=== PATIENT | female | born 1990 | race Caucasian/White ===

== ENCOUNTER → 2017-09-25 | Outpatient (CLI) | payer BC | LOC: LAB 10:02 | DX: J02.9 Acute pharyngitis, unspecified (principal) ==

== ENCOUNTER → 2020-03-24 | Outpatient (CLI) | payer BC | LOC: RAD 08:04 | DX: M25.561 Pain in right knee (principal) ==

== ENCOUNTER 2020-07-16 16:55 | Emergency (ER) | payer BC ==
[~2020-07-16] VITALS: Wt 100.9 kg
[2020-07-16] MEDS ORDERED: AUROVELA FE 1-1 EACH PO (17:11)
[2020-07-16 19:38] VITALS: BP 126/84
== END 2020-07-16 19:38 | disposition home or self-care (01) ==
LOC: ED 16:55
DX: R06.02 Shortness of breath (principal); R05 Cough; Z20.828 Contact with and (suspected) exposure to other viral communicable diseases; Z32.02 Encounter for pregnancy test, result negative; Z88.1 Allergy status to other antibiotic agents; Z88.8 Allergy status to other drugs, medicaments and biological substances
CPT/HCPCS: Q9967

== ENCOUNTER → 2020-07-16 | Outpatient (CLI) | payer BC ==
[~2020-07-16] MED LIST: AUROVELA FE 1-1 EACH PO
[2020-07-16 15:58] LABS: BASO # 0.1 (0.02-0.10); EOS # 0.2 (0.04-0.40); EOS % 1.6 % (1.0-5.0); HEMATOCRIT 44.6 % (37.0-47.0); HEMOGLOBIN 15.6 g/dL (12.5-16.0); LYMPH# 2.5 (1.50-4.00); MEAN CELL VOLUME 84 fl (78-100); MEAN CORPUSCULAR HEMOGLOBIN 29 pg (27-31); MEAN CORPUSCULAR HGB CONC 35 g/dL (33-37); MEAN PLATELET VOLUME 9.8 fl (7.4-10.4); NEU # 6.9 (1.40-6.50); PLATELET COUNT 360 K/mm3 (130-400); RED BLOOD COUNT 5.31 M/mm3 (4.10-5.30); RED CELL DISTRIBUTION WIDTH 12.5 % (11.5-14.5); WHITE BLOOD COUNT 10.7 K/mm3 (4.8-10.8)
[2020-07-16 16:13] LABS: ALBUMIN 4.5 g/dL (3.5-5.0); POTASSIUM 4.2 mmol/L (3.5-5.1); SODIUM 140 mmol/L (136-145)
[2020-07-16 16:14] LABS: CALCIUM 10.1 mg/dL (8.3-10.5)
[2020-07-16 16:15] LABS: GLUCOSE 98 mg/dL (65-105)
[2020-07-16 16:16] LABS: TOTAL PROTEIN 8.3 g/dL (6.4-8.3)
[2020-07-16 16:17] LABS: CARBON DIOXIDE 22 mmol/L (22-29); TOTAL BILIRUBIN 0.3 mg/dL (0.2-1.2)
[2020-07-16 16:21] LABS: AST-SGOT 29 U/L (5-34)
[2020-07-16 16:22] LABS: ALT/SGPT 53 U/L (0-55)
[2020-07-16 16:30] LABS: D-DIMER 0.55 mg/L FEU (0.15-0.50)
[2020-07-16 16:31] LABS: TROPONIN-I < 0.03 ng/mL (<0.030)
== END ==
LOC: LAB 07:29
PROVIDERS: Nurse Practitioner
DX: R05 Cough (principal); R06.02 Shortness of breath; R50.9 Fever, unspecified; R51.9 Headache, unspecified; Z20.828 Contact with and (suspected) exposure to other viral communicable diseases

== ENCOUNTER → 2020-07-20 | Outpatient (CLI) | payer BC ==
[2020-07-16 19:38] VITALS: BP 126/84
== END ==
LOC: RAD 10:29
DX: M79.604 Pain in right leg (principal); R79.1 Abnormal coagulation profile

== ENCOUNTER → 2021-03-26 | Outpatient (REF) | LOC: LAB 11:52 | DX: Z00.00 Encounter for general adult medical examination without abnormal findings (principal) ==

== ENCOUNTER 2021-09-12 07:58 | Emergency (ER) | payer BC ==
[~2021-09-12] VITALS: Ht 180.3 cm; Wt 105.4 kg
[2021-09-12] MEDS ORDERED: PROAIR HFA0.09 MG/AC IH (08:09)
[2021-09-12] MEDS ORDERED: MELOXICAM7.5 MG PO (08:09)
[2021-09-12] MEDS ORDERED: ZOFRAN ODT4 MG PO (11:13)
[2021-09-12 11:25] VITALS: BP 126/87
== END 2021-09-12 11:25 | disposition home or self-care (01) ==
LOC: ED 07:58
DX: S06.0X0A Concussion without loss of consciousness, initial encounter (principal); M54.2 Cervicalgia; W10.9XXA Fall (on) (from) unspecified stairs and steps, initial encounter; Y92.009 Unspecified place in unspecified non-institutional (private) residence as the place of occurrence of the external cause
CPT/HCPCS: J1885; J2360; L0172

== ENCOUNTER 2021-09-15 11:31 | Emergency (ER) | payer BC ==
[~2021-09-15] VITALS: Ht 180.3 cm; Wt 105.4 kg
[~2021-09-15 11:31] MED LIST changes: +MELOXICAM7.5 MG PO; +PROAIR HFA0.09 MG/AC IH; +ZOFRAN ODT4 MG PO
[2021-09-15 12:14] LABS: BASO # 0.07 K/mm3 (0.02-0.10); EOS % 2.6 % (1.0-5.0); HEMATOCRIT 45.4 % (37.0-47.0); HEMOGLOBIN 16.1 g/dL (12.5-16.0); LYMPH# 2.71 K/mm3 (1.50-4.00); MEAN CELL VOLUME 84 fl (78-100); MEAN CORPUSCULAR HEMOGLOBIN 30 pg (27-31); MEAN CORPUSCULAR HGB CONC 36 g/dL (33-37); MEAN PLATELET VOLUME 9.4 fl (7.4-10.4); MONO # 0.88 K/mm3 (0.20-0.80); NEU # 7.75 K/mm3 (1.40-6.50); PLATELET COUNT 385 K/mm3 (130-400); RED BLOOD COUNT 5.41 M/mm3 (4.10-5.30); RED CELL DISTRIBUTION WIDTH 11.9 % (11.5-14.5); WHITE BLOOD COUNT 11.7 K/mm3 (4.8-10.8)
[2021-09-15 12:16] LABS: ALBUMIN 4.5 g/dL (3.5-5.0)
[2021-09-15 12:17] LABS: SODIUM 141 mmol/L (136-145)
[2021-09-15 12:18] LABS: CALCIUM 9.7 mg/dL (8.3-10.5)
[2021-09-15 12:19] LABS: GLUCOSE 90 mg/dL (65-105)
[2021-09-15 12:20] LABS: CARBON DIOXIDE 22 mmol/L (22-29)
[2021-09-15 12:21] LABS: TOTAL BILIRUBIN 0.7 mg/dL (0.2-1.2)
[2021-09-15 12:22] LABS: D-DIMER 0.49 mg/L FEU (0.15-0.50)
[2021-09-15 12:24] LABS: AST-SGOT 43 U/L (5-34)
[2021-09-15 12:25] LABS: ALT/SGPT 62 U/L (0-55)
[2021-09-15 12:32] LABS: TROPONIN-I < 0.030 ng/mL (<0.030)
[2021-09-15 12:37] LABS: URINE APPEARANCE CLOUDY; URINE BILIRUBIN NEGATIVE (NEGATIVE); URINE BLOOD TRACE (NEGATIVE); URINE COLOR YELLOW; URINE GLUCOSE NEGATIVE (NEGATIVE); URINE KETONE NEGATIVE (NEGATIVE); URINE LEUKOCYTE ESTERASE 2+ (NEGATIVE); URINE NITRATE NEGATIVE (NEGATIVE); URINE PROTEIN(semi-quant) TRACE (NEGATIVE); URINE UROBILINOGEN NORMAL (NORMAL)
[2021-09-15 12:38] LABS: URINE MUCUS PRESENT (NOT PRESENT)
[2021-09-15] MEDS ORDERED: POLYTRIM 1000010 ML OP (13:12)
[2021-09-15] MEDS ORDERED: MACROBID 100 M100 MG PO (13:12)
[2021-09-15 13:21] VITALS: BP 129/91
== END 2021-09-15 13:39 | disposition home or self-care (01) ==
LOC: ED 11:31
PROVIDERS: Physician Assistant
DX: S06.0X9A Concussion with loss of consciousness of unspecified duration, initial encounter (principal); D72.829 Elevated white blood cell count, unspecified; H10.9 Unspecified conjunctivitis; H92.01 Otalgia, right ear; Z20.822 Contact with and (suspected) exposure to COVID-19; W10.9XXA Fall (on) (from) unspecified stairs and steps, initial encounter; W22.8XXA Striking against or struck by other objects, initial encounter
CPT/HCPCS: J0696

== ENCOUNTER → 2021-10-21 | Outpatient (CLI) | payer BC ==
[~2021-10-21] MED LIST changes: +MACROBID 100 M100 MG PO; +POLYTRIM 1000010 ML OP
== END ==
LOC: RAD 08:30
DX: F07.81 Postconcussional syndrome (principal)

== ENCOUNTER → 2022-01-06 | Outpatient (CLI) | payer BC ==
[~2022-01-06] MED LIST changes: +BETAMETHASONE D0.05% TOP; +DESVENLAFAXINE25 MG PO; +DESVENLAFAXINE50 M3 PO; +KLONOPIN 1MG1 MG PO; +NEURONTIN300 MG/CAP PO; +TRIAMCINOLONE AC0.13 TP; +TYLENOL EXTRA500 M2 PO
== END ==
LOC: RAD 16:57
DX: M54.2 Cervicalgia (principal); M54.81 Occipital neuralgia
CPT/HCPCS: A9585

== ENCOUNTER 2022-01-20 17:25 | Emergency (ER) | payer BC ==
[~2022-01-20 17:25] MED LIST changes: -BETAMETHASONE D0.05% TOP; -DESVENLAFAXINE25 MG PO; -DESVENLAFAXINE50 M3 PO; -KLONOPIN 1MG1 MG PO; -NEURONTIN300 MG/CAP PO; -TRIAMCINOLONE AC0.13 TP; -TYLENOL EXTRA500 M2 PO
[2022-01-20 19:55] LABS: BASO # 0.07 K/mm3 (0.02-0.10); EOS # 0.36 K/mm3 (0.04-0.40); HEMATOCRIT 42.7 % (37.0-47.0); HEMOGLOBIN 14.8 g/dL (12.5-16.0); LYMPH# 2.64 K/mm3 (1.50-4.00); MEAN CELL VOLUME 85 fl (78-100); MEAN CORPUSCULAR HEMOGLOBIN 30 pg (27-31); MEAN CORPUSCULAR HGB CONC 35 g/dL (33-37); MONO # 0.75 K/mm3 (0.20-0.80); NEU # 8.06 K/mm3 (1.40-6.50); PLATELET COUNT 407 K/mm3 (130-400); RED BLOOD COUNT 5.02 M/mm3 (4.10-5.30); RED CELL DISTRIBUTION WIDTH 12.1 % (11.5-14.5); WHITE BLOOD COUNT 11.9 K/mm3 (4.8-10.8)
[2022-01-20 19:59] LABS: ALBUMIN 4.6 g/dL (3.5-5.0)
[2022-01-20 20:00] LABS: POTASSIUM 3.9 mmol/L (3.5-5.1)
[2022-01-20 20:02] LABS: TOTAL PROTEIN 7.3 g/dL (6.4-8.3)
[2022-01-20 20:04] LABS: TOTAL BILIRUBIN 0.6 mg/dL (0.2-1.2)
[2022-01-20 20:44] LABS: URINE APPEARANCE CLEAR; URINE BILIRUBIN NEGATIVE (NEGATIVE); URINE BLOOD NEGATIVE (NEGATIVE); URINE COLOR YELLOW; URINE GLUCOSE NEGATIVE (NEGATIVE); URINE KETONE NEGATIVE (NEGATIVE); URINE LEUKOCYTE ESTERASE NEGATIVE (NEGATIVE); URINE NITRATE NEGATIVE (NEGATIVE); URINE PROTEIN(semi-quant) TRACE (NEGATIVE); URINE UROBILINOGEN NORMAL (NORMAL)
[2022-01-20 22:00] VITALS: BP 108/69
[2022-01-21] MEDS ORDERED: NEURONTIN300 MG/CAP PO (01:19)
[2022-01-21] MEDS ORDERED: KLONOPIN 1MG1 MG PO (01:20)
[2022-01-21] MEDS ORDERED: DESVENLAFAXINE25 MG PO (01:20)
[2022-01-21] MEDS ORDERED: DESVENLAFAXINE50 M3 PO (01:20)
[2022-01-21] MEDS ORDERED: BETAMETHASONE D0.05% TOP (01:21)
[2022-01-21] MEDS ORDERED: TYLENOL EXTRA500 M2 PO (01:21)
[2022-01-21] MEDS ORDERED: TRIAMCINOLONE AC0.13 TP (01:22)
== END 2022-01-20 22:00 | disposition home or self-care (01) ==
LOC: ED 17:25
PROVIDERS: Family Medicine
DX: F07.81 Postconcussional syndrome (principal); E66.9 Obesity, unspecified; Z28.311 Partially vaccinated for COVID-19
CPT/HCPCS: Q9967

== ENCOUNTER 2022-01-27 22:08 | Emergency (ER) | payer BC ==
[~2022-01-27 22:08] MED LIST changes: +BETAMETHASONE D0.05% TOP; +DESVENLAFAXINE25 MG PO; +DESVENLAFAXINE50 M3 PO; +KLONOPIN 1MG1 MG PO; +NEURONTIN300 MG/CAP PO; +TRIAMCINOLONE AC0.13 TP; +TYLENOL EXTRA500 M2 PO
[2022-01-27 23:02] LABS: BASO # 0.07 K/mm3 (0.02-0.10); EOS # 0.42 K/mm3 (0.04-0.40); EOS % 4.5 % (1.0-5.0); HEMOGLOBIN 13.5 g/dL (12.5-16.0); LYMPH# 2.76 K/mm3 (1.50-4.00); MEAN CELL VOLUME 84 fl (78-100); MEAN CORPUSCULAR HEMOGLOBIN 30 pg (27-31); MEAN CORPUSCULAR HGB CONC 36 g/dL (33-37); MEAN PLATELET VOLUME 9.8 fl (7.4-10.4); MONO # 0.61 K/mm3 (0.20-0.80); NEU # 5.45 K/mm3 (1.40-6.50); PLATELET COUNT 309 K/mm3 (130-400); RED BLOOD COUNT 4.55 M/mm3 (4.10-5.30); RED CELL DISTRIBUTION WIDTH 12.2 % (11.5-14.5); WHITE BLOOD COUNT 9.3 K/mm3 (4.8-10.8)
[2022-01-27 23:05] LABS: POTASSIUM 3.3 mmol/L (3.5-5.1)
[2022-01-27 23:07] LABS: CALCIUM 9.1 mg/dL (8.3-10.5)
[2022-01-27 23:08] LABS: TOTAL PROTEIN 6.2 g/dL (6.4-8.3)
[2022-01-27 23:10] LABS: TOTAL BILIRUBIN 0.6 mg/dL (0.2-1.2)
[2022-01-27 23:43] LABS: PH-URINE 6.5 (5.0 - 8.0); URINE APPEARANCE HAZY; URINE BILIRUBIN NEGATIVE (NEGATIVE); URINE BLOOD NEGATIVE (NEGATIVE); URINE COLOR LT YELLOW; URINE GLUCOSE NEGATIVE (NEGATIVE); URINE KETONE NEGATIVE (NEGATIVE); URINE LEUKOCYTE ESTERASE NEGATIVE (NEGATIVE); URINE NITRATE NEGATIVE (NEGATIVE); URINE PROTEIN(semi-quant) NEGATIVE (NEGATIVE); URINE UROBILINOGEN NORMAL (NORMAL); URINE WBC 0-1 /hpf (0-3)
[2022-01-28 01:42] VITALS: BP 123/81
== END 2022-01-28 01:45 | disposition home or self-care (01) ==
LOC: ED 22:08
PROVIDERS: Family Medicine
DX: R25.9 Unspecified abnormal involuntary movements (principal); E66.9 Obesity, unspecified
CPT/HCPCS: J1885; J2550

== ENCOUNTER → 2022-02-03 | Outpatient (CLI) | payer BC ==
[2022-02-04 15:50] LABS: IMMUNOGLOBULIN E, TOTAL 33 IU/mL (0-100)
[2022-02-04 16:04] LABS: IGM,SERUM 131 mg/dL (33-293); IMMUNOGLOBULIN G 601 mg/dL (552-1631)
[2022-02-04 17:15] LABS: IMMUNOGLOBULIN A 60 mg/dL (65-421)
== END ==
LOC: LAB 17:46
PROVIDERS: Internal Medicine
DX: F07.81 Postconcussional syndrome (principal); S16.1XXA Strain of muscle, fascia and tendon at neck level, initial encounter; F41.8 Other specified anxiety disorders; D89.40 Mast cell activation, unspecified; R11.2 Nausea with vomiting, unspecified; R42 Dizziness and giddiness; R55 Syncope and collapse

== ENCOUNTER → 2022-02-14 | Outpatient (REF) ==
[~2022-02-14] MED LIST changes: +DIFLUCAN100 M1 PO; +NYSTATIN 100MU/M1 ML PO; +PREDNISONE 5MG5 MG PO; +SYMBICORT1 AE2 IH
== END ==
LOC: LAB 14:36
DX: F07.81 Postconcussional syndrome (principal); S16.1XXA Strain of muscle, fascia and tendon at neck level, initial encounter; F41.8 Other specified anxiety disorders; R11.2 Nausea with vomiting, unspecified; D89.40 Mast cell activation, unspecified; R19.7 Diarrhea, unspecified

== ENCOUNTER 2022-03-19 18:35 | Emergency (ER) | payer BC ==
[~2022-03-19] VITALS: Ht 180.3 cm; Wt 107.4 kg
[~2022-03-19 18:35] MED LIST changes: -DIFLUCAN100 M1 PO; -NYSTATIN 100MU/M1 ML PO; -PREDNISONE 5MG5 MG PO; -SYMBICORT1 AE2 IH
[2022-03-19] MEDS ORDERED: NYSTATIN 100MU/M1 ML PO (18:53)
[2022-03-19] MEDS ORDERED: DESVENLAFAXINE25 MG PO (18:53)
[2022-03-19] MEDS ORDERED: SYMBICORT1 AE2 IH (18:54)
[2022-03-19] MEDS ORDERED: PREDNISONE 5MG5 MG PO (18:54)
[2022-03-19] MEDS ORDERED: DIFLUCAN100 M1 PO (19:36)
[2022-03-19 20:53] VITALS: BP 117/82
== END 2022-03-19 20:58 | disposition home or self-care (01) ==
LOC: ED 18:35
DX: B37.9 Candidiasis, unspecified (principal); T36.7X5A Adverse effect of antifungal antibiotics, systemically used, initial encounter

== ENCOUNTER → 2022-04-01 | Outpatient (REF) ==
[~2022-04-01] MED LIST changes: +DIFLUCAN100 M1 PO; +NYSTATIN 100MU/M1 ML PO; +PREDNISONE 5MG5 MG PO; +SYMBICORT1 AE2 IH
== END ==
LOC: LAB 16:41
DX: R55 Syncope and collapse (principal)

== ENCOUNTER 2022-04-06 11:17 | Emergency (ER) | payer BC ==
[~2022-04-06] VITALS: Ht 180.3 cm; Wt 111.1 kg
[2022-04-06 12:29] LABS: BASO # 0.06 K/mm3 (0.02-0.10); EOS # 0.19 K/mm3 (0.04-0.40); EOS % 2.1 % (1.0-5.0); HEMATOCRIT 38.7 % (37.0-47.0); HEMOGLOBIN 13.7 g/dL (12.5-16.0); LYMPH# 2.12 K/mm3 (1.50-4.00); MEAN CELL VOLUME 86 fl (78-100); MEAN CORPUSCULAR HEMOGLOBIN 30 pg (27-31); MEAN CORPUSCULAR HGB CONC 35 g/dL (33-37); MEAN PLATELET VOLUME 9.6 fl (7.4-10.4); MONO # 0.75 K/mm3 (0.20-0.80); NEU # 5.78 K/mm3 (1.40-6.50); PLATELET COUNT 354 K/mm3 (130-400); RED CELL DISTRIBUTION WIDTH 12.4 % (11.5-14.5); WHITE BLOOD COUNT 8.9 K/mm3 (4.8-10.8)
[2022-04-06 12:32] LABS: ALBUMIN 3.9 g/dL (3.5-5.0)
[2022-04-06 12:34] LABS: CALCIUM 9.5 mg/dL (8.3-10.5)
[2022-04-06 12:37] LABS: TOTAL BILIRUBIN 0.5 mg/dL (0.2-1.2)
[2022-04-06 12:40] LABS: TOTAL PROTEIN 6.7 g/dL (6.4-8.3)
[2022-04-06 13:06] LABS: PH-URINE 6.5 (5.0 - 8.0); URINE APPEARANCE CLOUDY; URINE BILIRUBIN NEGATIVE (NEGATIVE); URINE BLOOD NEGATIVE (NEGATIVE); URINE COLOR YELLOW; URINE GLUCOSE NEGATIVE (NEGATIVE); URINE KETONE NEGATIVE (NEGATIVE); URINE LEUKOCYTE ESTERASE 1+ (NEGATIVE); URINE NITRATE NEGATIVE (NEGATIVE); URINE PROTEIN(semi-quant) NEGATIVE (NEGATIVE); URINE UROBILINOGEN NORMAL (NORMAL)
[2022-04-06 13:57] VITALS: BP 110/75
== END 2022-04-06 13:58 | disposition home or self-care (01) ==
LOC: ED 11:17
PROVIDERS: Physician Assistant
DX: R55 Syncope and collapse (principal); R10.84 Generalized abdominal pain

== ENCOUNTER → 2022-04-06 | Outpatient (CLI) | payer BC | LOC: LAB 10:58 | DX: R55 Syncope and collapse (principal) ==

== ENCOUNTER → 2022-07-15 | Outpatient (CLI) | payer BC ==
[~2022-07-15] MED LIST changes: +ALLEGRA ALLERG180 MG; +AMITRIPTYLINE H10 M2 PO; +CLOBETASOL PROP15 GM TP; +FLONASE ALLERG9.9 ML NS; +IMITREX100 M1 PO; +KEPPRA 500MG500 MG PO; +METOPROLOL SUC100 M1 PO; +NORCO 325 MG-51 TA1 PO; +OMEPRAZOLE40 MG PO; +PEPCID40 M1 PO; +SINGULAIR PO; +SODIUM CHLORIDE1 GM PO; +VALIUM 5MG T5 MG/TAB PO
== END ==
LOC: LAB 10:56
DX: R73.9 Hyperglycemia, unspecified (principal)

== ENCOUNTER → 2023-05-29 | Outpatient (CLI) | payer BC | LOC: LAB 08:22 | DX: N39.0 Urinary tract infection, site not specified (principal); H66.92 Otitis media, unspecified, left ear; R10.9 Unspecified abdominal pain ==

== ENCOUNTER → 2023-10-05 | Outpatient (CLI) | payer BC | LOC: RAD 09:11 | DX: M25.532 Pain in left wrist (principal) ==